=== PATIENT | male | born 1960 | race Caucasian/White ===

== ENCOUNTER 2022-12-23 00:20 | Emergency (ER) | payer SELFPAY ==
[~2022-12-23] VITALS: Ht 182.9 cm; Wt 101.0 kg
[2022-12-23 00:29] VITALS: BP 147/88; O2SAT 98
[2022-12-23] MEDS ORDERED: TOPUD MT (01:08)
[2022-12-23] MEDS ORDERED: IBUP-2028 MT (01:08)
[2022-12-23] MEDS ORDERED: MUPI1OIN4 TP (01:13)
[2022-12-23 01:28] VITALS: PULSE 67; RESP 19; TEMP 97.8
== END 2022-12-23 01:29 | disposition home or self-care (01) ==
LOC: ER 00:20
DX: M25.561 Pain in right knee (principal); R21 Rash and other nonspecific skin eruption; E11.9 Type 2 diabetes mellitus without complications; Z90.89 Acquired absence of other organs
CPT/HCPCS: 73560; 99283